=== PATIENT | female | born 1965 | race Caucasian/White ===

== ENCOUNTER 2020-08-05 19:23 | Emergency (ER) | payer MEDICAID ==
[~2020-08-05] VITALS: Ht 167.6 cm; Wt 81.6 kg
[2020-08-05 19:32] VITALS: Ht 167.6 cm; Wt 81.6 kg
[2020-08-05 20:41] LABS: microscopic required? NO
[2020-08-05 20:47] LABS: BASOPHIL % 1.3 % (0.2-1.3); PLATELET COUNT 264 x10^3mcL (179-408); RED CELL DISTRIBUTION WIDTH 13.4 % (12.3-17.7)
[2020-08-05 21:03] LABS: urine erythrocyte NEGATIVE (NEGATIVE)
[2020-08-05 21:07] LABS: CALCIUM 8.2 mg/dL (8.5-10.1); CARBON DIOXIDE 28.7 mmol/L (21-32); CHLORIDE SERUM 105 mmol/L (98-107); CREATININE SERUM 0.6 mg/dL (0.6-1.0); GFR1 > 60 mL/min; GLUCOSE SERUM 106 mg/dL (74-106); POTASSIUM SERUM 3.4 mmol/L (3.5-5.1); SODIUM SERUM 141 mmol/L (136-145)
[2020-08-05 21:12] LABS: ALKALINE PHOSPHATASE 113 U/L (46-116); ALT/SGPT 28 U/L (14-59); AST/SGOT 19 U/L (15-37); BILIRUBIN TOTAL 0.4 mg/dL (0.20-1.00); LIPASE 114 IU/L (73-393); TOTAL PROTEIN, SERUM 6.9 g/dL (6.4-8.2)
[2020-08-05 21:13] LABS: ALBUMIN 3.3 g/dL (3.4-5.0)
[2020-08-05] MEDS ORDERED: CIPRO500 MG PO (23:50)
[2020-08-05] MEDS ORDERED: FLAGYL500 MG PO (23:50)
[2020-08-06 00:03] VITALS: BP 124/88
== END 2020-08-06 00:03 | disposition home or self-care (01) ==
LOC: ED 19:23
PROVIDERS: Student in an Organized Health Care Education/Training Program
DX: K57.32 Diverticulitis of large intestine without perforation or abscess without bleeding (principal)